=== PATIENT | female | born 1945 ===

== ENCOUNTER → 2018-05-21 | Outpatient (CLI) | payer OTHER ==
[~2018-05-21] VITALS: Ht 157.5 cm; Wt 68.5 kg
[~2018-05-21] MED LIST: ALBU8HFA IH; EZET10 PO
[2018-05-21 14:14] VITALS: BP 141/71
== END | disposition home or self-care (01) ==
LOC: SRCNTR 13:50
PROVIDERS: ATTEND Internal Medicine Critical Care Medicine
DX: R05 Cough (principal); K21.9 Gastro-esophageal reflux disease without esophagitis; I10 Essential (primary) hypertension; E78.5 Hyperlipidemia, unspecified
CPT/HCPCS: G0463